=== PATIENT | male | born 1960 | race Caucasian/White ===

== ENCOUNTER 2018-05-18 07:13 | Day surgery (SDC) | payer OTHER ==
[2018-05-12 10:12] VITALS: BMI 34.7
[2018-05-18] MEDS ORDERED: PROPOFOL 20 ML ONE ×4 (08:16)
[2018-05-18 08:21] VITALS: TEMP 97.8
[2018-05-18 09:25] VITALS: BP 123/71; PULSE 68
== END 2018-05-18 09:20 | disposition home or self-care (01) ==
LOC: FASU 07:13
PROVIDERS: ATTEND Internal Medicine Gastroenterology
PROC: 0DJD8ZZ Inspection of Lower Intestinal Tract, Via Natural or Artificial Opening Endoscopic (ICD-10-PCS; principal; 2018-05-18 08:28)
DX: Z86.010 Personal history of colon polyps (principal)